=== PATIENT | male | born 1985 | race Caucasian/White ===

== ENCOUNTER 2017-11-04 12:47 | Emergency (ER) | payer OTHER ==
[2017-11-04 13:03] VITALS: BP 146/86; PULSE 103; TEMP 98.1; BMI 24.0
--- NOTE | 2017-11-04 14:32 | PDOC ---
History of Present Illness - General Chief Complaint: Rash Stated Complaint: BODYACHES, RASH, NAUSEA Time Seen by Provider: 11/04/17 13:27 History Source: Patient Exam Limitations: No Limitations - History of Present Illness Initial Comments: 11/04/17 14:32 Patient is a [31-year-old male, no significant medical history currently on no medication presents requesting HIV testing states he has a rash to his left elbow is looking on the insulin and thought he may have HIV. Denies any fever, patient states yesterday he had a lesion removed from his back that was possibly precancerous since then has been having anxiety after receiving things on the Internet. He denies any chest pain or shortness of breath, left elbow with erythematous patch nonraised non-scaling, no induration. After reading certain things on the Internet about HIV started to have generalized pain, hyperventilating. Here for upon arrival.] Past Medical History: [Denies]. Allergies: No known allergies Medications: [None] Family History: Non-contributory Social History: Denies smoking, alcohol use, or IVDU Vital signs on arrival are [notable for pulse of 96.] Review of Systems GENERAL/CONSTITUTIONAL: [No fever or chills. No weakness. No weight change.] HEAD, EYES, EARS, NOSE AND THROAT: [No change in vision. No ear pain or discharge. No sore throat. ] CARDIOVASCULAR: [No chest pain or shortness of breath.] RESPIRATORY: [No cough, wheezing, or hemoptysis.] GASTROINTESTINAL: [No nausea, vomiting, diarrhea or constipation. No rectal bleeding.] GENITOURINARY: [No dysuria, frequency, or change in urination.] MUSCULOSKELETAL: [No joint or muscle swelling or pain. No neck or back pain.] SKIN : [No rash or easy bruising. Erythematous patch to left elbow.] NEUROLOGIC: [No headache, vertigo, loss of consciousness, or loss of sensation.] PSYCHIATRIC: [No depression or anxiety.] ENDOCRINE: [No increased thirst. No abnormal weight change.] HEMATOLOGIC/LYMPHATIC: [No anemia, easy bleeding, or history of blood clots.] ALLERGIC/IMMUNOLOGIC: [No hives or skin allergy. No latex allergy.] Physical Exam: GENERAL: [The patient is awake, alert, and fully oriented, in no acute distress. ] EYES: [Pupils equal, round and reactive to light, extraocular movements intact, sclera anicteric, conjunctiva clear.] ENT: [Ears normal, nares patent, oropharynx clear without exudates. Moist mucous membranes. No uvula deviation] NECK: [Normal range of motion, supple without lymphadenopathy, JVD, or masses.] LUNGS: [Breath sounds equal, clear to auscultation bilaterally. No wheezes, and no crackles.] HEART: [Regular rate and rhythm, normal S1 and S2 without murmur, rub or gallop. ] ABDOMEN: [Soft, nontender, normoactive bowel sounds. No guarding, no rebound. No masses. No bruising or abrasions] MUSCULOSKELETAL: [Normal range of motion, no edema. No clubbing or cyanosis. No cords, erythema, or tenderness. No CVA Tenderness with fist.] NEUROLOGICAL: [Cranial nerves II through XII grossly intact. Normal speech, normal gait.] SKIN: [Warm, Dry, normal turgor, no rashes or lesions noted. Erythematous, patch to left elbow consistent with either contact dermatitis or friction.] 11/04/17 14:44 Past History - Past Medical History Allergies/Adverse Reactions: Allergies Allergy/AdvReac Type Severity Reaction Status Date / Time No Known Allergies Allergy Verified 11/04/17 12:59 Home Medications: Ambulatory Orders NK [No Known Home Medication] 11/04/17 COPD: No Other medical history: denies. - Suicide/Smoking/Psychosocial Hx Smoking History: Never smoked Have you smoked in the past 12 months: No Hx Alcohol Use: No Drug/Substance Use Hx: No Substance Use Type: None *Physical Exam - Vital Signs Last Vital Signs Temp Pulse Resp BP Pulse Ox 98.1 F 103 H 19 146/86 100 11/04/17 13:00 11/04/17 13:00 11/04/17 13:00 11/04/17 13:00 11/04/17 13:00 ED Treatment Course - LABORATORY CBC & Chemistry Diagram: 11/04/17 14:31 Medical Decision Making - Medical Decision Making 11/04/17 14:47 A/P: Patient here requesting HIV testing, HIV and CBC sent. 11/04/17 16:01 Laboratory Results - last 24 hr 11/04/17 11/04/17 14:31 14:31 WBC 8.3 RBC 5.66 H Hgb 17.3 H Hct 48.9 MCV 86.3 MCH 30.6 MCHC 35.4 RDW 13.1 Plt Count 222 MPV 8.6 Neutrophils % 68.7 Lymphocytes % 23.7 Monocytes % 6.6 Eosinophils % 0.3 Basophils % 0.7 HIV 1&2 Antibody Screen Negative HIV P24 Antigen Negative Patient with elevated hemoglobin patient has been hyperventilating which may be the cause, will follow-up with primary care doctor on Monday, HIV is negative we 'll DC patient home to follow-up as needed. *DC/Admit/Observation/Transfer Diagnosis at time of Disposition: Anxiety - Discharge Dispostion Disposition: HOME Condition at time of disposition: Stable Admit: No - Referrals - Patient Instructions Additional Instructions: [place] follow-up with her primary care doctor as soon as possible as needed. - Post Discharge Activity
[2017-11-04 14:35] LABS: BASO % 0.7 % (0-2.0); EOS % 0.3 % (0-4.5); HEMATOCRIT 48.9 % (35.4-49); HEMOGLOBIN 17.3 GM/dL (11.7-16.9); LYMPH % 23.7 % (8-40); MCH 30.6 pg (25.7-33.7); MCHC 35.4 g/dl (32.0-35.9); MEAN CELL VOLUME 86.3 fl (80-96); MEAN PLT VOLUME 8.6 fl (7.5-11.1); MONO % 6.6 % (3.8-10.2); NEUT % 68.7 % (42.8-82.8); PLATELET COUNT 222 K/MM3 (134-434); RBC 5.66 M/mm3 (4.00-5.60); RDW 13.1 % (11.9-15.9); WHITE BLOOD COUNT 8.3 K/mm3 (4.0-10.0)
== END 2017-11-04 16:17 | disposition home or self-care (01) ==
LOC: JERFT 12:47
DX: F41.9 Anxiety disorder, unspecified (principal)
CPT/HCPCS: 36415; 85025; 87389; 99281-25

== ENCOUNTER 2018-05-27 18:51 | Emergency (ER) | payer OTHER ==
[2018-05-27 18:56] VITALS: BP 129/70; PULSE 79; TEMP 97.8; BMI 24.2
--- NOTE | 2018-05-27 19:43 | PDOC ---
History of Present Illness - General Chief Complaint: Urinary Problem Stated Complaint: URINARY PROBLEM Time Seen by Provider: 05/27/18 19:42 History Source: Patient, Old Records Exam Limitations: No Limitations - History of Present Illness Initial Comments: 32 y/o male presenting to [facility] ER via private car complaining of dysuria without frequency, urgency, hematuria, or discharge. Also complaining of occasional left flank and right flank pain. Symptoms have been acute on chronic for the past 2.5 months. No change in symptomatology this evening. Was evaluated by PCP at time on onset, which was reportedly normal. Was then evaluated by a urologist two weeks ago, who prescribed a course of PO antibiotics, which pt completed four days ago; no change in symptoms. Pt denies h/o STD. In multi-year monogamous relationship with . PCP: Rachel Morse Urologist: Kaur Marcum Hx: - Pt denies past medical history. Denies prescription medications. Surgical Hx: - Pt denies past surgical history. Past History - Past Medical History Allergies/Adverse Reactions: Allergies Allergy/AdvReac Type Severity Reaction Status Date / Time No Known Allergies Allergy Verified 05/27/18 18:55 Home Medications: Ambulatory Orders NK [No Known Home Medication] 11/04/17 COPD: No - Suicide/Smoking/Psychosocial Hx Smoking History: Never smoked Have you smoked in the past 12 months: No Hx Alcohol Use: No Drug/Substance Use Hx: No Substance Use Type: None Review of Systems - Review of Systems Able to Perform ROS?: Yes Comments:: In addition to that documented in the HPI above, the additional ROS was obtained : Constitutional: Denies fevers; endorses chronic chills (has undergone workup by infectious disease physician; reportedly normal) Eyes: Denies vision changes ENMT: Denies sore throat CV: Denies chest pain Resp: Denies SOB GI: Denies vomiting or diarrhea *Physical Exam - Vital Signs Last Vital Signs Temp Pulse Resp BP Pulse Ox 97.8 F 79 18 129/70 99 05/27/18 18:53 05/27/18 18:53 05/27/18 18:53 05/27/18 18:53 05/27/18 18:53 - Physical Exam Comments: Constitutional: Well-developed, well-nourished, athletic male in no acute distress or obvious discomfort.. Found sitting upright on edge of hospital bed. Alert and oriented x4. Answered all questions appropriately and completely. Speech was non-labored, non-pressured. HEENT: Normocephalic. No obvious external signs of trauma. Hearing grossly normal. No nasal discharge. Neck is supple, trachea is midline. No JVD. Cardiovascular: Regular rate and regular rhythm. No murmur, rubs, clicks, or gallops. Peripheral pulses: Radial pulses full. Respiratory: Breathing unlabored. Equal chest rise and fall. Clear to auscultation bilaterally. No stridor, no wheezing, no rhonchi. Gastrointestinal: abdomen is soft, non-tender, non-distended. No hepatosplenemegaly. No pulsatile masses. No overlying skin lesions or obvious signs of trauma. Neuro: Alert and oriented. Moving all four extremities spontaneously. Gait normal. Observed walking unassisted through department without discomfort or distress. Skin: Warm, dry, and intact. No bruising, rashes, or other lesions. No palpable nodules. : No R or L CVA tenderness. Psych: Affect: appropriate. Mood: normal. MALE GENITALIA: Genital exam revealed normally developed male genitalia. Uncircumcised. No scrotal mass or tenderness, no hernias or inguinal lymphadenopathy. No perineal or perianal abnormalities are seen. No genital lesions or urethral discharge. RN chaperoned exam. Medical Decision Making - Medical Decision Making *Reviewed vital signs, nursing notes, and prior visit documentation (if available). Previously healthy 38 y/o male complaining of dysuria x 2.5 months. No other urinary symptoms. S/p outpatient abx. Afebrile. Vitals unremarkable. Benign physical exam. Low suspicion for urethritis, prostatitis, epididymitis, cystitis , gonorrhea, chlamydia, trichomonas, nephrolithiasis, pyelonephritis, or appendicitis. Ordered UA, urine culture, G/C amp, and trich amp. UA unremarkable for pyuria, leukocyte esterase, or nitrites. Low suspicion for UTI. Culture pending. G/C and trichomonas amplifications pending. Discussed laboratory results with pt. Acknowledged these results are preliminary and final results will result in approx. 3 days. Answered all questions. Provided return precautions. Pt expressed verbal understanding and agreement with plan to discharge home with outpatient PCP or urology follow up. *DC/Admit/Observation/Transfer Diagnosis at time of Disposition: Dysuria - Discharge Dispostion Disposition: HOME Condition at time of disposition: Good Decision to Admit order: No - Referrals Referrals: Rachel Morse [Primary Care Provider] - Oleksandr Dietrich MD., [Staff Physician] - - Patient Instructions Printed Discharge Instructions: DI for Dysuria -- Adult Additional Instructions: Your urinalysis did not show signs of an infection. It will take approximately three days for the final results to result. The hospital lab should call if the results are positive. You may also call the number included in this packet to find out the results. Follow up with your urologist or your primary care physician within the next 3- 4 days. You will need to call to make an appointment. The numbers are both included in this packet. Go to the nearest emergency department if your condition worsens or you feel like you need additional emergency evaluation. Print Language: GEORGIAN - Post Discharge Activity
[2018-05-27 20:17] LABS: URINE APPEARANCE CLEAR; URINE BILIRUBIN NEGATIVE (<2.0 mg/dL); URINE COLOR COLORLESS; URINE GLUCOSE (UA) NEGATIVE (NEGATIVE); URINE KETONE NEGATIVE (NEGATIVE); URINE LEUK ESTERASE NEGATIVE (NEGATIVE); URINE NITRITE NEGATIVE (NEGATIVE); URINE PROTEIN NEGATIVE (NEGATIVE); URINE UROBILINOGEN NEGATIVE mg/dL (0.2-1.0)
--- NOTE | 2018-05-27 20:30 | PDOC ---
Attending Attestation - Resident Resident Name: Leonel Cui - ED Attending Attestation I have performed the following: I have examined & evaluated the patient, The case was reviewed & discussed with the resident, I agree w/resident's findings & plan, Exceptions are as noted - HPI HPI: 05/27/18 20:29 32 yo male p/w complaint of burding upon urination. He does have a history of this and has seen a urologist in the past - Physicial Exam PE: 05/27/18 20:30 slender 32 yo male presents anxious about burning upon urination head ncat neck supple lungs cta b/l cvs [id number] abd nontender no cva tenderness ext no e/c/c neuro axox3,ambulatory skin warm and dry psych anxious - Medical Decision Making 05/27/18 20:31 pt already has an appt with urology, Dr Dietrich on Jun 14 -no fever,no vomiting -urinalysis is negative -benign abd exam
== END 2018-05-27 20:44 | disposition home or self-care (01) ==
LOC: JER 18:51
DX: R30.0 Dysuria (principal)
CPT/HCPCS: 36415; 81003; 87086; 87491; 87591; 87661; 99282-25

== ENCOUNTER 2019-01-14 18:20 | Emergency (ER) | payer OTHER ==
[2019-01-14 18:27] VITALS: BP 134/80; PULSE 124; TEMP 98.9; BMI 23.6
--- NOTE | 2019-01-14 18:30 | PDOC ---
Rapid Medical Evaluation Time Seen by Provider: 01/14/19 18:25 Medical Evaluation: Allergies Allergy/AdvReac Type Severity Reaction Status Date / Time No Known Allergies Allergy Verified 05/27/18 18:55 01/14/19 18:25 I have performed a brief in-person evaluation of this patient. The patient presents with a chief complaint of:Body aches w/ cough and sore throat x 2 days. No pmhx, Pertinent physical exam findings:In NAD w/ HR 124 I have ordered the following:nothing The patient will proceed to the ED for further evaluation. Discharge Disposition - Diagnosis Viral syndrome - Referrals - Patient Instructions - Post Discharge Activity
--- NOTE | 2019-01-14 18:56 | PDOC ---
History of Present Illness - General Chief Complaint: Sore Throat Stated Complaint: SORE THROAT Time Seen by Provider: 01/14/19 18:25 History Source: Patient Exam Limitations: No Limitations - History of Present Illness Initial Comments: 01/14/19 18:57 33 year old male with no significant medical or surgical history presents with uri symptoms. Patient reports sorethroat, malaise and pain with inhalation. States non productive coughing and stuffy nose. Denies fever or chills Timing/Duration: 24 hours Severity: mild Modifying Factors: improves with: medication Associated Symptoms: reports: cough, malaise Aspirin Received prior to arrival: Yes: no aspirin today Asa Contraindications(Core Measure): No: Allergy Beta Irma Contraindications(Core Measure): Yes: Not Prescribed Beta Irma Given by EMS(Core Measure): No Beta Irma Taken at Home(Core Measure): No Beta Irma Not Indicated at this Time(Core Measure): No Past History - Travel Traveled outside of the country in the last 30 days: No Close contact w/someone who was outside of country & ill: No - Past Medical History Allergies/Adverse Reactions: Allergies Allergy/AdvReac Type Severity Reaction Status Date / Time No Known Allergies Allergy Verified 01/14/19 18:25 Home Medications: Ambulatory Orders Azithromycin [Zithromax 250mg Tablets -] 250 mg PO UTDICT #6 tab 01/14/19 Loratadine 10 mg PO DAILY #10 tablet 01/14/19 COPD: No - Immunization History Immunization Up to Date: Yes - Suicide/Smoking/Psychosocial Hx Smoking History: Never smoked Have you smoked in the past 12 months: No Hx Alcohol Use: No Drug/Substance Use Hx: No Substance Use Type: None Review of Systems - Review of Systems Able to Perform ROS?: Yes Is the patient limited Scottish proficient: No Constitutional: Yes: Malaise. No: Chills, Fever, Night Sweats HEENTM: Yes: Throat Pain Respiratory: No: Shortness of Breath, SOB at Rest Cardiac (ROS): No: Chest Pain, Lightheadedness, Palpitations ABD/GI: No: Nausea, Poor Appetite, Poor Fluid Intake Musculoskeletal: Yes: Muscle Pain Integumentary: No: Erythema Neurological: No: Numbness, Tremors Psychiatric: No: Stressors *Physical Exam - Vital Signs Last Vital Signs Temp Pulse Resp BP Pulse Ox 98.9 F 124 H 18 134/80 98 01/14/19 18:25 01/14/19 18:25 01/14/19 18:25 01/14/19 18:25 01/14/19 18:25 - Physical Exam General Appearance: Yes: Nourished, Appropriately Dressed. No: Apparent Distress HEENT: positive: Pharynx Normal Neck: positive: Supple. negative: Carotid bruit, Lymphadenopathy (R), Lymphadenopathy (L) Respiratory/Chest: positive: Lungs Clear, Normal Breath Sounds. negative: Respiratory Distress Cardiovascular: positive: Regular Rhythm, Regular Rate Neurologic: positive: Fully Oriented Medical Decision Making - Medical Decision Making 01/14/19 19:00 33 year old male with no significant medical or surgical history presents with uri symptoms. viral syndrome analgesia throat culture chest xray 01/14/19 19:31 Rx: loratadine analgesia rx: azithromycin *DC/Admit/Observation/Transfer Diagnosis at time of Disposition: Viral syndrome, Sorethroat - Discharge Dispostion Disposition: HOME Condition at time of disposition: Good Decision to Admit order: No - Referrals - Patient Instructions Printed Discharge Instructions: DI for Viral Syndrome Additional Instructions: Drink plenty fluids rest Call primary physician for follow up appoinment - Post Discharge Activity Forms/Work/School Notes: Back to Work
[2019-01-14] MEDS ORDERED: IBUPROFEN 600 MG TABLET (FP) PO ONE ×2 (18:57→18:58)
== END 2019-01-14 19:57 | disposition home or self-care (01) ==
LOC: JER 18:20 → JERFT 18:20
DX: B34.9 Viral infection, unspecified (principal); J02.9 Acute pharyngitis, unspecified
CPT/HCPCS: 71046-TC-FY; 87070; 87880; 99281-25